=== PATIENT | male | born 1975 | race American Indian/Alaskan Native ===

== ENCOUNTER 2016-11-08 13:42 | Emergency (ER) | payer MEDICAID, OTHER ==
[~2016-11-08] VITALS: Ht 177.8 cm; Wt 83.0 kg
[2016-11-08 13:45] VITALS: Ht 177.8 cm; Wt 83.0 kg
[2016-11-08] MEDS ORDERED: CEFTRIAXONE 1 GM INJ IVPB ONE (15:00)
[2016-11-08] MEDS ORDERED: VANCOMYCIN 1 GM (PMX) 250 ML IVPB SCH (15:00)
[2016-11-08 15:29] LABS: BASOPHIL # 0.1 10^3/ul (0.0-0.1); BASOPHILS % 0.7 % (0.0-2.0); EOSINOPHILS # 0.2 10^3/ul (0.0-0.5); EOSINOPHILS % 2.3 % (0.0-7.0); HEMATOCRIT 38.9 % (42.0-52.0); HEMOGLOBIN 13.3 g/dl (14.0-18.0); LYMPHOCYTES % 11.2 % (15.0-51.0); MEAN CORPUSCULAR HEMOGLOBIN 32.5 pg (29.0-33.0); MEAN CORPUSCULAR HGB CONC 34.1 g/dl (32.0-37.0); MEAN CORPUSCULAR VOLUME 95.2 fl (82.0-101.0); MONOCYTE # 0.6 10^3/ul (0.3-0.9); MONOCYTES % 6.6 % (0.0-11.0); NEUTROPHIL # 7.2 10^3/ul (1.6-7.5); NEUTROPHILS % 79.2 % (39.0-77.0); PLATELET COUNT 361 10^3/UL (140-440); RED BLOOD COUNT 4.09 10^6/ul (4.70-6.10); RED CELL DISTRIBUTION WIDTH 13.4 % (11.5-14.5)
[2016-11-08] MEDS ORDERED: CEFTRIAXONE 1 GM/50 ML (PMX) 50 ML IVPB ONE (15:30)
--- NOTE | 2016-11-08 15:33 | RADRPT ---
PROCEDURE: US DVT. CLINICAL INDICATION: Left lower extremity pain. TECHNIQUE: Multiple longitudinal and transverse images of the left lower extremity veins were obta ined with mcdermott scale and color Doppler imaging. 2D grayscale measurements with compression, color D oppler flow, and augmentation was performed. The calf veins were interrogated as well. COMPARISON: No prior studies are available for comparison. FINDINGS: The left common femoral, superficial femoral and popliteal veins are normally compressible throughou t. Color flow demonstrates normal filling of the vessel. Normal waveforms are visualized and there is normal response to augmentation. The calf veins are visualized and are equally unremarkable. IMPRESSION: 1. No evidence of a deep vein thrombosis involving the left lower extremity. RPTAT: [facility] Physician Anitha Date Time Electronically viewed and signed by Physician Anitha on 11/08/2016 15:32 /
[2016-11-08 15:35] LABS: ALBUMIN 3.9 g/dl (3.3-4.9)
[2016-11-08 15:36] LABS: CONDITION 1; POTASSIUM 3.8 mmol/L (3.5-5.1)
[2016-11-08 15:37] LABS: CREATININE 0.87 mg/dl (0.61-1.24)
[2016-11-08 15:38] LABS: ALBUMIN/GLOBULIN RATIO 1.18; BILIRUBIN,INDIRECT 0.2 mg/dl (0-1.1); BILIRUBIN,TOTAL 0.2 mg/dl (0.2-1.3); CALCIUM 8.9 mg/dl (8.4-10.2); TOTAL PROTEIN 7.2 g/dl (6.1-8.1)
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
--- NOTE | 2016-11-08 16:15 | RADRPT ---
PROCEDURE: Ultrasound medial left calf CLINICAL INDICATION: Focal wound with swelling and pain and erythema. TECHNIQUE: Sonographic evaluation of the medial left calf was performed with mcdermott scale and color imaging. Images were reviewed on a high-resolution PACS workstation. COMPARISON: None available FINDINGS: A large 8.9 x 2.1 x 6.1 cm complex heterogeneous elliptical shaped cystic fluid collection with inte rnal debris and internal echogenicity is seen within the medial left calf superficial soft tissues. Findings may represent a hematoma. However, an infected hematoma is a definite and significant pos sibility. Further evaluation is warranted. No significant color flow is seen within this large cys tic complex fluid collection. IMPRESSION: RPTAT: HMJB .Stuart Ayala MD, MD Date Time Electronically viewed and signed by .Stuart Ayala MD, on 11/08/2016 16:15 .B/
[2016-11-08] MEDS ORDERED: DIPHTH/TET/ACEL PERTUSS (ADULT) 0.5 ML VIAL IM* ONE (18:00)
--- NOTE | 2016-11-08 18:01 | RADRPT ---
PROCEDURE: XR Tibia and Fibula 2 Views. CLINICAL INDICATION: Lower extremity pain and trauma TECHNIQUE: AP and lateral views of the left tibia and fibula were obtained. COMPARISON: No prior studies are available for comparison. FINDINGS: The osseous structures are intact. No destructive bony lesions are identified. Interosseous spaces are normal. Focal soft tissue swelling is identified at over the medial aspect of the mid lower le g.. IMPRESSION: Focal soft tissue swelling over the medial aspect of the mid lower leg. This could reflect focal are a of bruising or hematoma. Intact osseous structures. If there is high clinical suspicion for bony traumatic injury, further evaluation with CT should be considered.. RPTAT: AA .Dustin Morocho MD, MD Date Time Electronically viewed and signed by .Dustin Morocho MD, on 11/08/2016 18:01 .P/
--- NOTE | 2016-11-08 18:02 | RADRPT ---
PROCEDURE: XR Foot 3 Views. CLINICAL INDICATION: Left foot pain and trauma TECHNIQUE: AP, oblique and lateral views of the left foot were obtained. The images were reviewed on a PACS workstation. COMPARISON: None. FINDINGS: The osseous structures are intact. No destructive bony lesions are identified. Interosseous spaces are normal. Soft tissues surrounding the foot appear unremarkable. IMPRESSION: No visualized traumatic injury. If there is high clinical suspicion for traumatic injury, further evaluation with CT should be consi dered. RPTAT: AA .Dustin Morocho MD, Date Time Electronically viewed and signed by .Dustin Morocho MD, on 11/08/2016 18:02 .P/
--- NOTE | 2016-11-08 18:03 | RADRPT ---
PROCEDURE: XR Knee 3 Views. CLINICAL INDICATION: Left knee pain and trauma TECHNIQUE: AP, lateral and tunnel view of the left knee were obtained. The images reviewed on a [employer] workstation. COMPARISON: None. FINDINGS: The osseous structures are intact. No destructive bony lesions are observed. Interosseous spaces a re normal. Small suprapatellar joint effusion is identified. IMPRESSION: Small suprapatellar joint effusion. Ligamentous and tendinous injury is not excluded. If characteri zation of the ligaments and tendons is needed MRI is recommended. If there is high clinical suspicion for bony traumatic injury, further evaluation with CT should be considered. RPTAT: AA .Dustin Morocho MD, Date Time Electronically viewed and signed by .Dustin Morocho MD, on 11/08/2016 18:03 .P/
--- NOTE | 2016-11-08 18:05 | RADRPT ---
PROCEDURE: XR Ankle 3 Views. CLINICAL INDICATION: Pain and trauma TECHNIQUE: AP, oblique and lateral views of the left ankle were performed. COMPARISON: None. FINDINGS: The osseous structures are intact. No destructive bony lesions are observed. Interosseous spaces a ppear normal. Soft tissue swelling is seen surrounding the ankle. IMPRESSION: Soft tissue swelling surrounding the ankle. Ligamentous and tendinous injury is not excluded. If ch aracterization of the ligaments and tendons is needed MRI is recommended. If there is high clinical suspicion for bony traumatic injury, further evaluation with CT should be considered. RPTAT: AA .Dustin Morocho MD, Date Time Electronically viewed and signed by .Dustin Morocho MD, MD on 11/08/2016 18:04 .P/
[2016-11-08] MEDS ORDERED: BACTDS PO (18:31)
[2016-11-08] MEDS ORDERED: CEPH-443 PO (18:32)
[2016-11-08] MEDS ORDERED: HYDR-906 PO (18:32)
[2016-11-08 19:26] VITALS: BP 127/88; PULSE 81; RESP 18; TEMP 97.8
== END 2016-11-08 19:49 | disposition home or self-care (01) ==
LOC: FTE 13:42
DX: S99.922A Unspecified injury of left foot, initial encounter (principal); F17.210 Nicotine dependence, cigarettes, uncomplicated; V23.4XXA Motorcycle driver injured in collision with car, pick-up truck or van in traffic accident, initial encounter; Z23 Encounter for immunization
CPT/HCPCS: 73562; 73590; 73610; 73630; 76536; 80053; 83690; 85025; 87040; 90471; 90715; 93971; 96374; 96375; J0696; J3370; Z7502